=== PATIENT | male | born 2000 | race Caucasian/White ===

== ENCOUNTER 2021-05-03 19:03 | Emergency (ER) | payer OTHER ==
[2021-05-03] MEDS ORDERED: Morphine 2 MG/ML SYRINGE IVPUSH ONE (19:11)
[2021-05-03] MEDS ORDERED: Morphine 4 MG/ML Syringe IVPUSH PRN (19:12)
[2021-05-03] MEDS ORDERED: Lactated Ringers 1,000 ML IV ONE (19:13)
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
[2021-05-03] MEDS ORDERED: Iopamidol 755 Mg/ML 100 ML Bottle IVPUSH ONE (19:19)
[2021-05-03] MEDS ORDERED: Sodium Chloride 0.9% 10 ML SDV FLUSH ONE (19:19)
[2021-05-03] MEDS: Sodium Chloride 0.9% 10 ML Syringe FLUSH PRN ×2 (19:27→19:34)
[2021-05-03] MEDS ORDERED: Sodium Chloride 0.9% 100 ML IV SCH (19:30)
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
[2021-05-03] MEDS ORDERED: Acetaminophen/oxyCODONE 325-5 MG Tab PO PRN (21:49)
[2021-05-03] MEDS ORDERED: Ondansetron 4 MG Tab.DIS PO PRN (21:49)
[2021-05-03] MEDS ORDERED: HYDROmorphone 0.5 MG/0.5 ML Syringe IVPUSH PRN (21:49)
[2021-05-03] MEDS ORDERED: Albuterol/Ipratropium 3.0-0.5 MG/3 ML Neb Soln NEB PRN (21:57)
[2021-05-03] MEDS ORDERED: Ibuprofen 600 MG Tab PO SCH (22:00)
[2021-05-04] MEDS ORDERED: Heparin Sodium 5,000 Units/ML Vial SUBCUT SCH (08:00)
--- NOTE | 2021-05-05 06:55 | CR ---
Chest: Portable view of the chest was obtained. Comparison: No prior chest imaging is available. Patchy area of increased density is seen within the left upper chest. Left lower chest appears clear. Right chest appears clear on this exam. Heart size and mediastinum are within normal limits. Acute fracture is noted within the right clavicle. Impression: 1. Parenchymal density within the left upper chest presumably due to diffuse pulmonary contusion. 2. Right clavicle fracture is seen. 3. No additional abnormality is identified on chest x-ray. Diagnostic code #3
--- NOTE | 2021-05-06 16:26 | CT ---
CT chest Technique: Multiple axial sections through the chest were obtained. Intravenous contrast was utilized. Reconstructed coronal and sagittal images were obtained. Comparison: Prior earlier chest x-ray performed on the same day (7:08 PM) FIndings: Mediastinum and hilar regions show no adenopathy or mass. No pleural effusions are seen. No axillary adenopathy is seen. No pericardial thickening is noted. Patchy areas of pulmonary contusion are seen within the left upper chest. Small area of contusion is seen within the left periaortic region within the left base as well as small parenchymal change within the right upper chest. Several areas of air are seen within these abnormalities compatible with small areas of lung laceration. Two extra pleural areas of air are noted within the left lower lung. Findings most likely represent a minimal loculated pneumothorax. No additional pneumothorax is seen. Bone window settings were obtained. There is a right distal clavicle fracture being seen which is located proximal to the acromioclavicular joint by 2.5 cm. No other acute osseous abnormality is noted. Impression: 1. Focal parenchymal contusion within the left upper lung. Smaller parenchymal contusion within the left periaortic region within the left lower lung as well as smaller pulmonary contusion within the right upper lung. These areas show evidence of air compatible with small areas of lung laceration. 2. Two small areas of extrapleural air seen within the left lung base most likely representing small loculated pneumothorax. No other findings of pneumothorax are seen. 3. Right clavicle fracture. Diagnostic code #3 I agree with preliminary report from [facility], finalized on 05/03/21, 8:59 PM CDT, code 1 CT abdomen and pelvis Technique: Multiple axial sections were obtained from above the dome of the diaphragm inferiorly through the pubic symphysis. Intravenous contrast was utilized. No oral contrast was utilized. Delayed images were also obtained through the abdomen and pelvis. Reconstructed coronal and sagittal images were obtained. Comparison: No prior abdominal imaging is available. Findings: Liver shows no focal parenchymal abnormality. Gallbladder contains no calcified gallstones. Spleen size is normal. Adrenal glands show no nodule. Kidneys show symmetric contrast passed hydronephrosis. Pancreas is within normal limits. Abdominal aorta shows no aneurysm. No retroperitoneal adenopathy or mesenteric abnormalities are seen. No pelvic mass or adenopathy is identified. Delayed images show contrast excretion from both kidneys with contrast noted within the ureters and bladder. No extravasation of any contrast is seen. No free fluid within the abdomen or pelvis is seen. Appendix is felt to be seen which is normal in size. Bone window settings were reviewed which show no acute osseous abnormality. Impression: 1. Nothing acute is appreciated on CT study of the abdomen and pelvis. Diagnostic code #1 I agree with preliminary report from [facility], finalized on 05/03/21, 9:03 PM CDT
== END 2021-05-03 22:35 | disposition left against medical advice (07) ==
LOC: JD.ED 19:03 → JD.MS 21:49 → UNDOADMIN 21:49
DX: S42.021A Displaced fracture of shaft of right clavicle, initial encounter for closed fracture (principal); S27.321A Contusion of lung, unilateral, initial encounter; J45.909 Unspecified asthma, uncomplicated; Z91.018 Allergy to other foods; Z91.010 Allergy to peanuts; V80.010A Animal-rider injured by fall from or being thrown from horse in noncollision accident, initial encounter; Y93.52 Activity, horseback riding
CPT/HCPCS: 36415; 71045; 71260; 74177; 80053; 83690; 85025; 86850; 86900; 86901; 96374; 99285; J2270; J7120; Q9967

== ENCOUNTER 2024-01-09 14:37 | Emergency (ER) | payer OTHER ==
[2024-01-09] MEDS: Famotidine 20 MG/2 ML SDV IVPUSH ONE (15:07)
[2024-01-09] MEDS: methylPREDNISolone Sodium Succinate 125 MG/2 ML SDV IVPUSH ONE (15:08)
[2024-01-09] MEDS: diphenhydrAMINE 50 MG/ML SDV IVPUSH ONE (15:08)
== END 2024-01-09 17:35 | disposition left against medical advice (07) ==
LOC: JD.ED 14:37
DX: T78.40XA Allergy, unspecified, initial encounter (principal); J45.909 Unspecified asthma, uncomplicated; Z91.048 Other nonmedicinal substance allergy status; Z91.010 Allergy to peanuts; Z79.899 Other long term (current) drug therapy
CPT/HCPCS: 96374; 96375; 99283; J1200; J2930; J3490; 99282